=== PATIENT | male | born 1975 | race Caucasian/White ===

== ENCOUNTER → 2021-12-20 | Day surgery (SDC) | payer OTHER ==
[~2021-12-20] VITALS: Ht 172.7 cm; Wt 86.6 kg
[~2021-12-20] MED LIST: CLARITIN10 MG PO; LISINOPRIL10 MG PO
== END | disposition home or self-care (01) ==
LOC: FAS 08:24
DX: Z12.11 Encounter for screening for malignant neoplasm of colon (principal); D12.5 Benign neoplasm of sigmoid colon; I10 Essential (primary) hypertension; J45.909 Unspecified asthma, uncomplicated; E78.00 Pure hypercholesterolemia, unspecified; F17.210 Nicotine dependence, cigarettes, uncomplicated; Z91.040 Latex allergy status; Z79.899 Other long term (current) drug therapy
CPT/HCPCS: J2704; J7120